=== PATIENT | female | born 1995 | race Caucasian/White ===

== ENCOUNTER 2017-09-03 20:21 | Emergency (ER) | payer BC ==
[~2017-09-03] VITALS: Ht 165.1 cm; Wt 79.4 kg
[~2017-09-03 20:21] MED LIST: NO HOME MEDICATIONS
[2017-09-03 20:25] VITALS: BP 135/79; TEMP 98.2
[2017-09-03] MEDS ORDERED: AMOXICILLIN 50500 MG (21:41)
[2017-09-03] MEDS ORDERED: FLEXERIL5 MG PO (22:07)
[2017-09-03] MEDS ORDERED: NORCO 325 MG-51 TAB PO (22:07)
[2017-09-03] MEDS ORDERED: OMNICEF 300MG300 MG PO (22:07)
[2017-09-03 22:15] VITALS: PULSE 90
== END 2017-09-03 22:16 | disposition home or self-care (01) ==
LOC: COL.ER 20:21
DX: J32.9 Chronic sinusitis, unspecified (principal); M26.601 Right temporomandibular joint disorder, unspecified

== ENCOUNTER → 2017-10-25 | Outpatient (CLI) | payer BC ==
[~2017-10-25] MED LIST changes: +AMOXICILLIN 50500 MG; +FLEXERIL5 MG PO; +NORCO 325 MG-51 TAB PO; +OMNICEF 300MG300 MG PO
== END ==
LOC: COL.RAD 13:48
DX: R51 Headache (principal)

== ENCOUNTER → 2019-11-05 | Outpatient (CLI) | payer BC ==
[2019-11-05 15:12] LABS: BASO % 0.3 % (0.0-2.0); EOS # 0.1 (0.0-0.7); EOS % 0.7 % (0-4.0); GRAN # 8.5 (1.4-6.5); GRAN % 79.7 % (42.2-75.2); HEMATOCRIT 41.4 % (37.0-47.0); HEMOGLOBIN 14.1 g/dl (12.5-16.0); LYMPH # 1.1 (1.2-3.4); LYMPH % 10.5 % (20.0-51.0); MEAN CELL VOLUME 92 fl (80.0-100.0); MEAN CORPUSCULAR HEMOGLOBIN 32 pg (27.0-31.0); MEAN CORPUSCULAR HGB CONC 34 g/dl (33.0-37.0); MONO # 0.9 (0.1-0.6); MONO % 8.4 % (1.7-9.3); PLATELET COUNT 181 K/mm3 (130-400); RED BLOOD COUNT 4.48 M/mm3 (4.10-5.30); REDCELL DISTRIBUTION WIDTH-CV 11.9 % (11.5-14.5)
[2019-11-05 15:19] LABS: ALBUMIN 4.7 gm/dL (3.5-5.0); BILIRUBIN,TOTAL 0.6 mg/dL (0.0-1.0); CALCIUM 9.4 mg/dL (8.4-10.2); CREATININE, serum 0.79 (0.52-1.25); POTASSIUM 3.9 mmol/L (3.4-5.0)
== END ==
LOC: COL.RAD 14:30
PROVIDERS: Nurse Practitioner Family
DX: K82.0 Obstruction of gallbladder (principal)
CPT/HCPCS: Q9967

== ENCOUNTER → 2019-11-14 | Outpatient (CLI) | payer BC | LOC: COL.RAD 12:54 | DX: R22.0 Localized swelling, mass and lump, head (principal) ==

== ENCOUNTER → 2019-12-10 | Outpatient (CLI) | payer BC ==
[~2019-12-10] MED LIST changes: +ALDACTONE 100M100 MG PO; +CYANOCOBAL1000 MCG/1 SQ; +FLEXERIL 1010 MG/TAB PO; +GLUCOPHAGE XR500 M1 PO; +LEXAPRO 10MG10 MG PO; +NEURONTIN100 MG/CAP PO; +VITAMIN D 50,1.25 MG PO
== END ==
LOC: COL.RAD 07:09
DX: R10.11 Right upper quadrant pain (principal)

== ENCOUNTER 2019-12-13 05:36 | Day surgery (SDC) | payer BC ==
[~2019-12-13] VITALS: Ht 165.1 cm; Wt 66.1 kg
[2019-12-13] VITALS (7 sets, daily range): BP systolic 101–125; BP diastolic 51–80; PULSE 67–86; TEMP 97.9–98
[~2019-12-13 05:36] MED LIST changes: -ALDACTONE 100M100 MG PO; -CYANOCOBAL1000 MCG/1 SQ; -FLEXERIL 1010 MG/TAB PO; -GLUCOPHAGE XR500 M1 PO; -LEXAPRO 10MG10 MG PO; -NEURONTIN100 MG/CAP PO; -VITAMIN D 50,1.25 MG PO
[2019-12-13] MEDS ORDERED: NEURONTIN100 MG/CAP PO (05:57)
[2019-12-13] MEDS ORDERED: ALDACTONE 100M100 MG PO (05:58)
[2019-12-13] MEDS ORDERED: CYANOCOBAL1000 MCG/1 SQ (05:59)
[2019-12-13] MEDS ORDERED: FLEXERIL 1010 MG/TAB PO (05:59)
[2019-12-13] MEDS ORDERED: GLUCOPHAGE XR500 M1 PO (05:59)
[2019-12-13] MEDS ORDERED: LEXAPRO 10MG10 MG PO (06:00)
[2019-12-13] MEDS ORDERED: VITAMIN D 50,1.25 MG PO (06:00)
[2019-12-13] MEDS ORDERED: MOBIC15 MG PO (06:01)
[2019-12-13] MEDS ORDERED: FOLIC ACID0.8 MG PO (06:01)
[2019-12-13] MEDS ORDERED: TYLENOL 500MG500 MG PO (06:02)
[2019-12-13] MEDS ORDERED: MULTIPLE VITAMI1 CAP PO (06:02)
--- NOTE | 2019-12-13 09:25 | NUR ---
The patient arrived back to [facility] from the recovery room at this time. The patient appears alert and oriented and reports minimal pain at this time. The patient denies n/v at this time and requests to try some ice water. Post operative vital signs were started at this time. The patient has two lap sites to her abdomen that is covered with caldwell set and appears clean, dry and intact. Call light is within reach. Will continue to monitor the patient.
--- NOTE | 2019-12-13 09:43 | NUR ---
The patient appeared to tolerate the water well and requests to try a muffin at this time. Vital signs appear stable. Call light remains within reach. Will continue to monitor the patient.
[2019-12-13] MEDS ORDERED: NORCO 325 MG-51 TAB PO (09:50)
[2019-12-13] MEDS ORDERED: DOXYCYCLINE HY100 MG PO (09:52)
--- NOTE | 2019-12-13 09:55 | NUR ---
The patient appeared to tolerate her muffin well and was given a PRN dose of [place] 1 tab at this time. Vital signs appear stable. Call light is within reach. Will continue to monitor the patient.
--- NOTE | 2019-12-13 10:10 | NUR ---
The patient appears to be resting comfortably on the cart at this time. Call light is within reach. The patient reports minimal pain in her abdomen at this time. Will continue to monitor the patient.
--- NOTE | 2019-12-13 10:40 | NUR ---
The patient ambulated to the bathroom with the stand by assistance of one nurse and appeared to tolerate the activity well. The patient voided without difficulty. The nurse instructed the patient to get dressed and notify the staff when she is ready to be escorted out.
--- NOTE | 2019-12-13 11:10 | NUR ---
The patient was given her dose of Rocephin as ordered. Discharge instructions were reviewed with the patient at this time. She verbalized understanding and has no questions for the nurse at this time. The patient is dressed and ready to be escorted out.
--- NOTE | 2019-12-13 11:20 | NUR ---
The patient was escorted out via wheelchair to a private vehicle by ALY Sousa. The patient's belongings and discharge paperwork were sent with her. The patient's mother is present to drive her home.
== END 2019-12-13 11:20 | disposition home or self-care (01) ==
LOC: SDCO 05:36
DX: K66.0 Peritoneal adhesions (postprocedural) (postinfection) (principal); N73.9 Female pelvic inflammatory disease, unspecified; E28.2 Polycystic ovarian syndrome; M47.9 Spondylosis, unspecified; Z79.899 Other long term (current) drug therapy
CPT/HCPCS: J0330; J0696; J1100; J2250; J2405; J2704; J3010; J7120

== ENCOUNTER → 2020-02-07 | Outpatient (CLI) | payer BC ==
[~2020-02-07] MED LIST changes: +ALDACTONE 100M100 MG PO; +CYANOCOBAL1000 MCG/1 SQ; +DOXYCYCLINE HY100 MG PO; +FLEXERIL 1010 MG/TAB PO; +FOLIC ACID0.8 MG PO; +GLUCOPHAGE XR500 M1 PO; +LEXAPRO 10MG10 MG PO; +MOBIC15 MG PO; +MULTIPLE VITAMI1 CAP PO; +NEURONTIN100 MG/CAP PO; +TYLENOL 500MG500 MG PO; +VITAMIN D 50,1.25 MG PO
== END ==
LOC: COL.RAD 14:45
DX: N92.6 Irregular menstruation, unspecified (principal)

== ENCOUNTER → 2021-09-06 | Outpatient (CLI) | payer BC | LOC: ZCOL.LAB 17:26 | DX: U07.1 COVID-19 (principal) ==

== ENCOUNTER → 2023-09-13 | Outpatient (CLI) | payer BC ==
[~2023-09-13] VITALS: Ht 165.1 cm; Wt 97.3 kg
[~2023-09-13] MED LIST changes: +NEURONTIN300 MG/CAP PO; +VITAMIN B11000 MCG/M IM; +VITAMIND3 5000 PO
[2023-09-13 09:29] VITALS: BP 120/84; PULSE 93; TEMP 98.6
[2023-09-13 10:15] VITALS: BP 125/78; PULSE 81
== END ==
LOC: COL.RAD 09:11
DX: M54.16 Radiculopathy, lumbar region (principal)
CPT/HCPCS: J0665; J3301